=== PATIENT | male | born 1960 | race Caucasian/White ===

== ENCOUNTER 2018-02-23 18:29 | Inpatient (IN) | payer BC ==
[2018-02-23] MEDS: SODIUM CHLORIDE 0.9% 1,000 ML IV SCH (18:35)
--- NOTE | 2018-02-23 19:01 | ED ---
General Adult HPI - General Chief complaint: Chest Pain Stated complaint: elevated troponin Time Seen by Provider: 02/23/18 18:33 Source: patient, EMS, RN notes reviewed, old records reviewed Mode of arrival: EMS Limitations: no limitations - History of Present Illness Initial comments: 57-year-old male transferred as non-ST segment elevated [place]. Patient complained of some chest pressure and nausea. He states he felt fullness in his chest. Patient was found to have an elevated troponin and transferred for further evaluation. Patient has no known medical history, nondiabetic. Nonsmoker. He does have family history of CAD. Patient himself has no known history of coronary artery disease. He states he is feeling quite a bit better at the time my evaluation. No nausea vomiting. He has some mild chest fullness and tightness. No specific pain complaint. No abdominal pain. Patient was given aspirin and started on heparin prior to transfer. - Related Data Home Medications Medication Instructions Recorded Confirmed Acetaminophen [Tylenol Extra 500 mg PO Q6H PRN 02/23/18 02/23/18 Strength] Aspirin 325 mg PO BID PRN 02/23/18 02/23/18 Allergies Allergy/AdvReac Type Severity Reaction Status Date / Time No Known Allergies Allergy Verified 02/23/18 19:06 Review of Systems ROS Statement: Those systems with pertinent positive or pertinent negative responses have been documented in the HPI. ROS Other: All systems not noted in ROS Statement are negative. Past Medical History Past Medical History: Hyperlipidemia History of Any Multi-Drug Resistant Organisms: None Reported Past Surgical History: No Surgical Hx Reported Past Psychological History: No Psychological Hx Reported Smoking Status: Never smoker Past Alcohol Use History: Occasional Past Drug Use History: None Reported General Exam Limitations: no limitations General appearance: alert, in no apparent distress Head exam: Present: atraumatic, normocephalic Eye exam: Present: normal appearance, PERRL, EOMI ENT exam: Present: normal exam Neck exam: Present: normal inspection. Absent: tenderness, meningismus Respiratory exam: Present: normal lung sounds bilaterally. Absent: respiratory distress, wheezes Cardiovascular Exam: Present: regular rate, normal rhythm GI/Abdominal exam: Present: soft. Absent: distended, tenderness, guarding Extremities exam: Present: normal inspection, normal capillary refill. Absent: pedal edema, calf tenderness Neurological exam: Present: alert, oriented X3, CN II-XII intact. Absent: motor sensory deficit Psychiatric exam: Present: normal affect, normal mood Skin exam: Present: warm, dry, intact. Absent: cyanosis, diaphoretic Course Vital Signs 02/23/18 18:34 Temperature 98.9 F Pulse Rate 68 Respiratory 18 Rate Blood Pressure 140/100 O2 Sat by Pulse 97 Oximetry EKG Findings - EKG Comments: EKG Findings:: EKG: Normal sinus rhythm, rate of 63, TN interval 144, QRS duration 94, QTC [address] segment elevation or depression Medical Decision Making - Medical Decision Making 57-year-old male presenting with elevated troponin and chief complaint of chest discomfort and fullness. EKG is repeated upon arrival after transfer. No acute signs of ischemia. Laboratory studies are repeated including troponin which went from 0.98 to 3.1. Case discussed with Dr. Mcmullen, given the elevated troponin and ongoing symptoms patient will be taken to the [facility]. Patient merited Dr. Barbosa - Lab Data Result diagrams: 02/23/18 18:54 02/23/18 18:54 Lab Results 02/23/18 02/23/18 02/23/18 Range/Units 18:54 18:54 18:54 WBC 9.2 (3.8-10.6) k/uL RBC 4.86 (4.30-5.90) m/uL Hgb 15.4 (13.0-17.5) gm/dL Hct 43.8 (39.0-53.0) % MCV 90.2 (80.0-100.0) fL MCH 31.7 (25.0-35.0) pg MCHC 35.2 (31.0-37.0) g/dL RDW 13.6 (11.5-15.5) % Plt Count 221 (150-450) k/uL Neutrophils % 76 % Lymphocytes % 17 % Monocytes % 5 % Eosinophils % 1 % Basophils % 1 % Neutrophils # 6.9 (1.3-7.7) k/uL Lymphocytes # 1.5 (1.0-4.8) k/uL Monocytes # 0.5 (0-1.0) k/uL Eosinophils # 0.1 (0-0.7) k/uL Basophils # 0.0 (0-0.2) k/uL Sodium 139 (137-145) mmol/L Potassium 4.5 (3.5-5.1) mmol/L Chloride 105 (98-107) mmol/L Carbon Dioxide 22 (22-30) mmol/L Anion Gap 12 mmol/L BUN 21 H (9-20) mg/dL Creatinine 0.74 (0.66-1.25) mg/dL Est GFR (CKD-EPI)AfAm >90 (>60 ml/min/1.73 sqM) Est GFR (CKD-EPI)NonAf >90 (>60 ml/min/1.73 sqM) Glucose 102 H (74-99) mg/dL Calcium 9.3 (8.4-10.2) mg/dL Total Bilirubin 0.9 (0.2-1.3) mg/dL AST 90 H (17-59) U/L ALT 47 (21-72) U/L Alkaline Phosphatase 66 (38-126) U/L Troponin I 3.120 H* (0.000-0.034) ng/mL Total Protein 7.6 (6.3-8.2) g/dL Albumin 4.5 (3.5-5.0) g/dL Critical Care Time Critical Care Time: Yes Total Critical Care Time: 35 Disposition Clinical Impression: NSTEMI (non-ST elevated myocardial infarction) Disposition: ADMITTED IP TO THIS [facility] Condition: Serious Is patient prescribed a controlled substance at d/c from ED?: No Referrals: Ntahan Paul MD [Primary Care Provider] - 1-2 days Decision to Admit Reason: Admit from EC Decision Date: 02/23/18 Decision Time: 19:41
[2018-02-23 19:07] LABS: Basophils % (A) 1 %; Eosinophils # (A) 0.1 k/uL (0-0.7); Eosinophils % (A) 1 %; HCT 43.8 % (39.0-53.0); HGB 15.4 gm/dL (13.0-17.5); Lymphocytes # (A) 1.5 k/uL (1.0-4.8); Lymphocytes % (A) 17 %; MCH 31.7 pg (25.0-35.0); MCHC 35.2 g/dL (31.0-37.0); MCV 90.2 fL (80.0-100.0); Mean Platelet Volume 7.9; Monocytes # (A) 0.5 k/uL (0-1.0); Monocytes % (A) 5 %; Neutrophils # (A) 6.9 k/uL (1.3-7.7); Neutrophils % (A) 76 %; Platelet Count 221 k/uL (150-450); RBC 4.86 m/uL (4.30-5.90); RDW 13.6 % (11.5-15.5); WBC 9.2 k/uL (3.8-10.6)
[2018-02-23 19:16] LABS: ALT 47 U/L (21-72); AST 90 U/L (17-59); Albumin 4.5 g/dL (3.5-5.0); Alkaline Phosphatase 66 U/L (38-126); Anion Gap 12 mmol/L; Blood Urea Nitrogen 21 mg/dL (9-20); Calcium 9.3 mg/dL (8.4-10.2); Carbon Dioxide 22 mmol/L (22-30); Chloride 105 mmol/L (98-107); Glucose 102 mg/dL (74-99); Potassium 4.5 mmol/L (3.5-5.1); Sodium 139 mmol/L (137-145); Total Bilirubin 0.9 mg/dL (0.2-1.3); Total Protein 7.6 g/dL (6.3-8.2)
[2018-02-23] MEDS ORDERED: HEPARIN SODIUM,PORCINE 5,000 UNIT/ML 1 ML VIAL IV PRN (19:33)
[2018-02-23 19:36] LABS: Partial Thromboplastin Time 48.1 sec (22.0-30.0); Prothrombin Time 10.1 sec (9.0-12.0)
[2018-02-23] MEDS ORDERED: ATORVASTATIN 80 MG TAB PO STA (19:36)
[2018-02-23] MEDS ORDERED: NALOXONE 0.4 MG/ML 1 ML VIAL IV PRN (19:36)
[2018-02-23] MEDS ORDERED: HEPARIN SOD,PORK IN 0.45% NACL 25,000 UNIT in 0.45% NACL 1 500ML.BAG IV SCH (19:45)
[2018-02-23] MEDS ORDERED: LIDOCAINE 1% INJ 10MG/ML (20 ML MDV) ONE (20:14)
[2018-02-23] MEDS ORDERED: VANCOMYCIN IV PER PHARMACY 1 EACH MISC MISCELLANE PRN (20:21)
[2018-02-23] MEDS ORDERED: PANTOPRAZOLE 40 MG/10 ML VIAL IVP STA (20:23)
[2018-02-23] MEDS ORDERED: cefTRIAXone IN SWFI 1,000 MG/10 ML SYRINGE IVP STA (20:24)
[2018-02-23] MEDS ORDERED: VANCOMYCIN 1,750 MG in SODIUM CHLORIDE 0.9% 500 ML IVPB STA (20:26)
[2018-02-23] MEDS ORDERED: fentaNYL (PF) 50 MCG/ML 2 ML AMP ONE (20:30)
[2018-02-23] MEDS ORDERED: VERAPAMIL 2.5 MG/ML 2 ML AMP ONE (20:30)
--- NOTE | 2018-02-23 20:30 | XR ---
EXAMINATION TYPE: XR chest 1V portable DATE OF EXAM: 02/23/2018 COMPARISON: NONE HISTORY: Chest pain TECHNIQUE: Single frontal view of the chest is obtained. FINDINGS: Heart and mediastinum are normal. Lungs are clear. Diaphragm is normal. Bony thorax appear s normal. IMPRESSION: Normal chest
[2018-02-23] MEDS ORDERED: fentaNYL (PF) 50 MCG/ML 2 ML AMP IV ONE (20:33)
[2018-02-23] MEDS ORDERED: LIDOCAINE 2% SYG (PF) 100 MG/5 ML MISCELLANE ONE (20:35)
[2018-02-23] MEDS ORDERED: VERAPAMIL SYRINGE (5 MG/10 ML) INTRAARTER ONE (20:37)
[2018-02-23] MEDS ORDERED: IV FLUID CONTINUATION 1,000 ML IV ONE (20:38)
[2018-02-23] MEDS ORDERED: BIVALIRUDIN BOLUS 250 MG/50 ML IV ONE (20:45)
[2018-02-23] MEDS ORDERED: PRASUGREL 10 MG TAB ONE (20:46)
[2018-02-23] MEDS ORDERED: BIVALIRUDIN 250 MG in SODIUM CHLORIDE 0.9% 50 ML IV ONE ×2 (20:46→21:35)
[2018-02-23] MEDS ORDERED: PRASUGREL 10 MG TAB PO ONE (20:49)
[2018-02-23] MEDS ORDERED: IOPAMIDOL-370 125ML BTL INJ ONE ×2 (21:00)
[2018-02-23] MEDS ORDERED: NITROGLYCERIN 1000MCG/10ML SYRINGE INTRACORON ONE (21:45)
[2018-02-23] MEDS ORDERED: IOPAMIDOL-370 100ML BTL INJ ONE ×2 (21:46→22:12)
[2018-02-23] MEDS ORDERED: ATROPINE SULFATE 0.1 MG/ML 10ML SYRINGE IV PRN (22:31)
[2018-02-23] MEDS ORDERED: RX INFO: IV CONTRAST WAS GIVEN 1 EACH MISC MISCELLANE PRN (22:31)
[2018-02-23] MEDS ORDERED: ZOLPIDEM 5 MG TAB PO PRN (22:31)
[2018-02-23] MEDS ORDERED: MAG HYDROX/AL HYDROX/SIMETH 30 ML CUP PO PRN (22:31)
[2018-02-23] MEDS ORDERED: NITROGLYCERIN SL TABS 0.4 MG TAB SUBLINGUAL PRN (22:31)
[2018-02-23] MEDS ORDERED: SODIUM CHLORIDE 0.9% 1,000 ML IV SCH (22:45)
[2018-02-24] MEDS: METOPROLOL TARTRATE 25 MG TAB PO SCH ×3 (00:03→20:20)
[2018-02-24] MEDS: ATORVASTATIN 80 MG TAB PO SCH ×2 (00:03→20:20)
[2018-02-24] MEDS: SODIUM CHLORIDE 0.9% 1,000 ML IV SCH (00:04)
--- NOTE | 2018-02-24 06:09 | CONS ---
CONSULTATION Mr. Zabala is a 57-year-old male with no prior documented history of cardiac disease who woke up this morning with jaw, neck discomfort and teeth discomfort subsequently chest discomfort. His discomfort persisted and he went to the emergency room at [facility]. He is usually quite active physically, exercises regularly without any difficulty. This discomfort is new to him. He denies any prior cardiac history. Denies any similar symptoms. He has no prior history of PND, orthopnea, or peripheral edema. No dizziness, palpitation, or syncope. In the emergency room in [place], his troponin was 1.04. The patient coronary risk factors are negative for diabetes. He is nonsmoker. He had hypertension in the past but subsequently did not need to be treated. He has no history of smoking. His father had a myocardial infarction in his 70s. MEDICATIONS: His medication none. SOCIAL HISTORY: He drinks caffeine. Social alcohol intake. REVIEW OF SYSTEMS: RESPIRATORY SYSTEM: No recent wheezing. No cough. No history of obstructive lung disease. GI SYSTEM: No recent GI bleed. No peptic ulcer disease. SYSTEM: No dysuria or hematuria. NERVOUS SYSTEM: No history of stroke or seizure. PHYSICAL EXAMINATION: A 57-year-old male, alert, oriented, in no apparent distress. Blood pressure running in the 130/70 with a heart rate in the 70s. HEAD: Normocephalic. EYES: Sclerae anicteric. NECK: Good carotid upstroke. No bruit. No jugular venous distention. LUNGS: Clear to auscultation. HEART: Regular rate and rhythm. S1, S2. No S3. No S4. No murmur or rub. ABDOMEN: Soft, nontender. Positive bowel sounds. No organomegaly. EXTREMITIES: No edema. Intact distal pulses. LAB DATA: Lab data revealed troponin 1.04, potassium 3.8, BUN and creatinine of 20 and 0.9. EKG revealed sinus mechanism, normal axis and intervals. No acute ST-segment changes. IMPRESSION: Chest discomfort with jaw and teeth discomfort with elevation of troponin consistent with non ST-segment elevation myocardial infarction. The patient continues to have some chest discomfort at this time. RECOMMENDATION: In view of his persistent symptoms on presentation, I recommend proceeding with coronary angiography to assess his status and guide his treatment. The rationale behind the procedure as well as the risks and complications were discussed with the patient who is in full understanding and agreement. Thank you for this consult. We will follow with you. MMPAULYL / IJN: [id number] /
--- NOTE | 2018-02-24 06:24 | CC ---
CARDIAC CATHETERIZATION REPORT Mr. Zabala is a 57-year-old male with no prior history disease of coronary artery disease, who presented to the emergency room with symptoms of chest discomfort and jaw discomfort with troponin elevation consistent with myocardial infarction. In view of that, recommendation made regarding cardiac catheterization. The procedures, risks and complications were discussed with the patient who was in full understanding and agreement. PROCEDURE: Patient was brought to fence laborer after receiving fentanyl and Benadryl and achieving moderate conscious sedated state. Using Xylocaine anesthesia and Seldinger technique a 6-British sheath was introduced in the right radial artery. Selective right and left angiography performed using 5-British 3 and half bend right Margarette catheter and a 6- British 3 and half FR4 guiding catheter. Images of the coronary arteries with violeta axial views were obtained. Following that, angioplasty and stenting was performed. Following that a 6-British tight pigtail catheter was introduced in the left ventricle and pressures were calculated. Following that, catheter and sheaths were removed. Hemostasis was obtained with deployment of an TR band. There was no immediate complication. Patient is returned to his room in stable condition. FINDINGS: Left Main: This is a large-sized vessel trifurcating left circumflex, left anterior descending artery, left main coronary artery and a ramus intermedius. Left main coronary artery has no evidence of high-grade stenosis. Left Anterior Descending Artery: This is a large-sized vessel reaching toward the apex with a wraparound apex segment giving rise to a moderately sized diagonal branch. The left anterior descending artery has intimal disease and throughout its course of 20 to 30%. There was a 60 to 70% plaque at the takeoff of the diagonal branch. Ramus Intermedius: This vessel is large in caliber, reaching to the apical lateral wall, has intimal disease in the proximal segment of 20% to 30% without any evidence of high-grade stenosis. Left Circumflex: This vessel is totally occluded proximally with no antegrade flow. Right Coronary Artery: This is a dominant vessel moderate in caliber bifurcating distally PDA and posterolateral segment branches. The right coronary artery and its segment has a plaque of about 50-60%. The rest of the vessel has no high-grade stenosis. Left Ventriculogram: Left ventriculogram was not performed. Hemodynamics: There was no gradient across the aortic valve. The left ventricle end- diastolic pressure was 12 to 60 mmHg. CONCLUSION: 1. Acutely occluded the left circumflex proximally. 2. Mild to moderate disease in a diffuse pattern in the LAD and the right coronary artery. RECOMMENDATION: In view of finding anatomy I recommend proceeding with angioplasty and stenting of the left circumflex. The procedures, risks and complications were discussed with the patient who is in full understanding and agreement. JOSE / DELROY: [id number] /
--- NOTE | 2018-02-24 06:36 | PTCA ---
PERCUTANEOUSTRANS CORORONARY ANGIOGRAPHY Mr. Zabala is a 57-year-old male with no prior documented history of coronary artery disease who presented with evidence of non ST-segment elevation myocardial infarction, underwent cardiac catheterization and was found to have totally occluded proximal left circumflex. In view of that, recommendation was made regarding angioplasty and stenting. The procedure as well as the risks and the complications were discussed with the patient who is in full understanding and agreement. PROCEDURE: Using the 6-[place] FL 3.5 guiding catheter attempts to advance a 0.014 balanced medium weight J-wire through the total occlusion were unsuccessful because of poor backup. At that point, the guiding catheter was removed and a 6-[place] Citizen EBU 3.75 guiding catheter was introduced in the system and a 0.014 whisper J-wire with straight SuperCross were advanced. There was inability to advance the wire through the total occlusion because of the acute and angulation of the takeoff of the left circumflex. At that point, the straight SuperCross the catheter was removed and a 45 degree SuperCross catheter was advanced and with the help of that catheter, the whisper J-wire was positioned distally across the lesion. Following the removal of the SuperCross 1.5 x 8 mm Trek balloon was advanced and multiple inflations maximum of 10 atmospheres were done. Following that the balloon was removed and a 2.0 x 8 mm Trek balloon was advanced and multiple inflations were done in the proximal segment. Following that, the balloon was removed and a 2.25 x 12 mm Xience Alpine stent was deployed postdilated at 12 atmospheres after removing the balloon a 2.25 x 8 mm Xience Alpine stent was deployed distal to the first one and it was dilated at 12 atmospheres. Following that, the balloon was removed and another 2.25 x 8 mm Xience Alpine stent was deployed proximal to the first stent and post dilated at 12 atmospheres. After the last inflation, after appropriate wait, the balloon and the guidewire were withdrawn back in the guiding catheter. Images were obtained and repeated. Those images reveal stable successful stenting. At that point, the guiding catheter, the balloon and the guidewire were removed. Left ventricle end-diastolic pressure was measured using the pigtail catheter. Following that, catheter and sheaths were removed. Hemostasis was obtained with deployment of a TR band. There was no immediate complication. Patient was returned to his room in stable condition. Of note, the patient had improvement in his chest discomfort at the end of the procedure. He received Angiomax per protocol as well as oral loading dose of Effient. RESULTS: Successful stenting of proximal left circumflex with reduction of stenosis from 100% to 0%. RECOMMENDATION: Patient will be continued on aspirin, Effient, beta lionel, PUJA inhibitor, and statin. The importance of dual antiplatelet treatment was discussed with the patient and his family and they are in full understanding and agreement. Duration procedure is 108 minutes. MMODL / IJN: [id number] /
[2018-02-24 06:50] LABS: Anion Gap 11 mmol/L; Blood Urea Nitrogen 18 mg/dL (9-20); Carbon Dioxide 22 mmol/L (22-30); Chloride 106 mmol/L (98-107); Cholesterol 207 mg/dL (<200); Glucose 109 mg/dL (74-99); HDL Cholesterol 42 mg/dL (40-60); LDL Cholesterol,Calculated 120 mg/dL (0-99); Potassium 4.1 mmol/L (3.5-5.1); Sodium 139 mmol/L (137-145); Triglycerides 224 mg/dL (<150)
[2018-02-24] MEDS: ASPIRIN 81 MG PO SCH (07:59)
--- NOTE | 2018-02-24 09:23 | P.PN ---
Subjective Progress Note Date: 02/24/18 Principal diagnosis: NSTEMI This is a pleasant 57-year-old gentleman with no significant history of cardiac issues, is a nonsmoker, no diabetes and prior hypertension for which he has not recently required treatment for and family history includes father who had an GA in his 70s. He presented to [facility] with complaints of the jaw neck, bilateral teeth and chest discomfort that persisted for several hours. He is usually quite physically active, exercises regularly, right his bike frequently and has no difficulty with this. His troponin levels came in to be elevated and the patient was subsequently transferred here to [facility]. He underwent cardiac catheterization by Dr. Mcmullen yesterday which found acutely occluded left circumflex proximally and mild to moderate disease in a diffuse pattern in the LAD and the RCA. He subsequently underwent stenting of the proximal left circumflex. Upon examination this morning, patient is resting comfortably in bed. He denies further complaints of jaw neck or tooth discomfort. Continues to have very mild left chest discomfort, he does not really describe this as a pain, rated a 1 and a 0-10 scale. He has been up ambulating only to the bathroom but has not had difficulties with this. Denies any shortness of breath, lightheadedness, dizziness, palpitations, nausea or vomiting. Objective - Vital Signs Vital signs: Vital Signs Temp 98.6 F 02/24/18 07:53 Pulse 71 02/24/18 08:00 Resp 16 02/24/18 07:53 BP 118/75 02/24/18 07:53 Pulse Ox 94 L 02/24/18 09:05 Intake & Output 02/23/18 02/24/18 02/24/18 18:59 06:59 18:59 Intake Total 1521.05 10 Output Total 800 Balance 721.05 10 Weight 92.986 kg 94 kg Intake: IV 1521.05 10 Invasive Line 2 10 10 Sodium Chloride 0.9% 1, 1200 000 ml @ 100 mls/hr IV . Q10H JENNIFER Rx#:[id number] Output: Urine 800 Other: # Voids 1 - Exam PHYSICAL EXAMINATION: HEENT: Head is atraumatic, normocephalic. Pupils equal, round. Neck is supple. There is no elevated jugular venous pressure. HEART EXAMINATION: Heart sounds regular, S1 and S2 normal. No murmur or gallop heard. CHEST EXAMINATION: Lungs are clear to auscultation and precussion. No chest wall tenderness is noted on palpation or with deep breathing. ABDOMEN: Soft, nontender. Bowel sounds are heard. No organomegaly noted. EXTREMITIES: 2+ peripheral pulses with no evidence of peripheral edema and no calf tenderness noted. Right radial puncture site is soft without hematoma or ecchymosis. NEUROLOGIC patient is awake, alert and oriented x3. . - Labs CBC & Chem 7: 02/23/18 18:54 02/24/18 06:17 Labs: Abnormal Lab Results - Last 24 Hours (Table) 02/23/18 02/23/18 02/23/18 Range/Units 18:54 18:54 18:54 APTT 48.1 H (22.0-30.0) sec BUN 21 H (9-20) mg/dL Glucose 102 H (74-99) mg/dL AST 90 H (17-59) U/L Troponin I 3.120 H* (0.000-0.034) ng/mL Triglycerides (<150) mg/dL Cholesterol (<200) mg/dL LDL Cholesterol, Calc (0-99) mg/dL 02/24/18 02/24/18 02/24/18 Range/Units 01:05 06:17 06:17 APTT (22.0-30.0) sec BUN (9-20) mg/dL Glucose 109 H (74-99) mg/dL AST (17-59) U/L Troponin I 30.500 H* 27.400 H* (0.000-0.034) ng/mL Triglycerides 224 H (<150) mg/dL Cholesterol 207 H (<200) mg/dL LDL Cholesterol, Calc 120 H (0-99) mg/dL Assessment and Plan Assessment: #1 non-STEMI #2 status post stenting of the proximal left circumflex #3 mild to moderate CAD involving the LAD and RCA #4 hyperlipidemia #5 remote history of hypertension Plan: From cardiology perspective, continue aspirin, atorvastatin, metoprolol tartrate and Effient. Echocardiogram with Doppler was obtained, we will review these at results. Further recommendations to follow. The above dictated assessment and findings were discussed with signing physician. The impression and plan of care have been directed as dictated. Gill Antoine, Nurse Practitioner, acting as scribe for signing physician.
--- NOTE | 2018-02-24 09:47 | ECHOF ---
Referral Reason:nc MEASUREMENTS -------- HEIGHT: 170.2 cm WEIGHT: 93.9 kg BP: 105/65 RVIDd: 3.2 cm (< 3.3) IVSd: 1.2 cm (0.6 - 1.1) LVIDd: 3.6 cm (3.9 - 5.3) LVPWd: 1.2 cm (0.6 - 1.1) IVSs: 1.6 cm LVIDs: 2.4 cm LVPWs: 1.6 cm LA Diam: 3.5 cm (2.7 - 3.8) LAESV Index (A-L): 26.15 ml/m Ao Diam: 3.6 cm (2.0 - 3.7) AV Cusp: 2.3 cm (1.5 - 2.6) MV EXCURSION: 16.312 mm (> 18.000) MV EF SLOPE: 69 mm/s (70 - 150) EPSS: 0.5 cm MV E Aman: 0.85 m/s MV DecT: 185 ms MV A Aman: 0.91 m/s MV E/A Ratio: 0.94 FINDINGS -------- Sinus rhythm. This was a technically good study. The left ventricular size is normal. There is borderline concentric left ventricular hypertrophy. Overall left ventricular systolic function is normal with, an EF between 60 - 65 %. The right ventricle is normal in size. Normal LA size by volume 22+/-6 ml/m2. The right atrium is normal in size. The aortic valve is trileaflet and appears structurally normal. Mild mitral regurgitation is present. The tricuspid valve appears structurally normal. Trace/mild (physiologic) pulmonic regurgitation. The aortic root size is normal. IVC Not well visulized. There is no pericardial effusion. CONCLUSIONS -------- 1. Sinus rhythm. 2. This was a technically good study. 3. The left ventricular size is normal. 4. There is borderline concentric left ventricular hypertrophy. 5. Overall left ventricular systolic function is normal with, an EF between 60 - 65 %. 6. The right ventricle is normal in size. 7. Normal LA size by volume 22+/-6 ml/m2. 8. The right atrium is normal in size. 9. The aortic valve is trileaflet and appears structurally normal. 10. Mild mitral regurgitation is present. 11. The tricuspid valve appears structurally normal. 12. Trace/mild (physiologic) pulmonic regurgitation. 13. The aortic root size is normal. 14. IVC Not well visulized. 15. There is no pericardial effusion. SENIOR PLANNING ANALYST: Paula Pacheco RDCS
[2018-02-24 11:22] VITALS: BMI 32.4
--- NOTE | 2018-02-24 15:58 | P.HPIM ---
History of Present Illness 57-year-old the gentleman admitted for chest pain in the retrosternal area typical just pain found to have non-ST elevation microinfarction with highly elevated troponin of 26 underwent cardiac catheterization which showed completely occluded left proximal underwent stenting of that vessel and the patient denied any chest pain at this point of time patient is not a smoker does drink alcohol occasionally patient denied any fever chills patient's pain is is nonpleuritic not associated with food. Post cardiac catheterization echocardiac exam showed ejection fraction of 65% Review of Systems REVIEW OF SYSTEMS: CONSTITUTIONAL: No fever, no malaise, no fatigue. HEENT: No recent visual problems or hearing problems. Denied any sore throat. CARDIOVASCULAR: No orthopnea, PND, no palpitations, no syncope. PULMONARY: No shortness of breath, no cough, no hemoptysis. GASTROINTESTINAL: No diarrhea, no nausea, no vomiting, no abdominal pain. Normoactive bowel sounds. NEUROLOGICAL: No headaches, no weakness, no numbness. HEMATOLOGICAL: Denies any bleeding or petechiae. GENITOURINARY: Denies any burning micturition, frequency, or urgency. MUSCULOSKELETAL/RHEUMATOLOGICAL: Denies any joint pain, swelling, or any muscle pain. ENDOCRINE: Denies any polyuria or polydipsia. The rest of the 14-point review of systems is negative. Past Medical History Past Medical History: Hyperlipidemia History of Any Multi-Drug Resistant Organisms: None Reported Past Surgical History: No Surgical Hx Reported Past Anesthesia/Blood Transfusion Reactions: No Reported Reaction Past Psychological History: No Psychological Hx Reported Smoking Status: Never smoker Past Alcohol Use History: Occasional Past Drug Use History: None Reported Medications and Allergies Home Medications Medication Instructions Recorded Confirmed Type Acetaminophen [Tylenol Extra 500 mg PO Q6H PRN 02/23/18 02/23/18 History Strength] Aspirin 325 mg PO BID PRN 02/23/18 02/23/18 History Allergies Allergy/AdvReac Type Severity Reaction Status Date / Time No Known Allergies Allergy Verified 02/23/18 19:06 Physical Exam Vitals: Vital Signs Temp Pulse Pulse Resp BP BP Pulse Ox 02/24/18 11:42 97.8 F 67 18 105/72 97 02/24/18 09:05 94 L 02/24/18 08:00 71 02/24/18 07:53 98.6 F 71 16 118/75 94 L 02/24/18 04:00 97.2 F L 61 16 105/65 96 02/24/18 02:15 61 18 105/64 98 02/24/18 01:16 65 18 101/66 95 02/24/18 00:16 62 18 108/73 97 02/23/18 23:46 64 18 114/68 97 02/23/18 23:16 73 18 132/61 98 02/23/18 23:01 64 18 121/80 98 02/23/18 22:46 65 18 116/83 97 02/23/18 22:31 98.1 F 65 18 125/83 98 02/23/18 18:45 18 02/23/18 18:34 98.9 F 68 18 140/100 97 Intake and Output 02/24/18 02/24/18 02/24/18 06:59 14:59 22:59 Intake Total 1210 260 Balance 1210 260 Intake: IV 1210 20 Invasive Line 2 10 20 Sodium Chloride 0.9% 1, 1200 000 ml @ 100 mls/hr IV . Q10H [facility] Rx#:[id number] Oral 240 Other: Weight 94 kg 94 kg PHYSICAL EXAMINATION: GENERAL: The patient is alert and oriented x3, not in any acute distress. Well developed, well nourished. HEENT: Pupils are round and equally reacting to light. EOMI. No scleral icterus. No conjunctival pallor. Normocephalic, atraumatic. No pharyngeal erythema. No thyromegaly. CARDIOVASCULAR: S1 and S2 present. No murmurs, rubs, or gallops. PULMONARY: Chest is clear to auscultation, no wheezing or crackles. ABDOMEN: Soft, nontender, nondistended, normoactive bowel sounds. No palpable organomegaly. MUSCULOSKELETAL: No joint swelling or deformity. EXTREMITIES: No cyanosis, clubbing, or pedal edema. NEUROLOGICAL: Gross neurological examination did not reveal any focal deficits. SKIN: No rashes. Results CBC & Chem 7: 02/23/18 18:54 02/24/18 06:17 Labs: Abnormal Lab Results - Last 24 Hours (Table) 02/23/18 02/23/18 02/23/18 Range/Units 18:54 18:54 18:54 APTT 48.1 H (22.0-30.0) sec BUN 21 H (9-20) mg/dL Glucose 102 H (74-99) mg/dL AST 90 H (17-59) U/L Troponin I 3.120 H* (0.000-0.034) ng/mL Triglycerides (<150) mg/dL Cholesterol (<200) mg/dL LDL Cholesterol, Calc (0-99) mg/dL 02/24/18 02/24/18 02/24/18 Range/Units 01:05 06:17 06:17 APTT (22.0-30.0) sec BUN (9-20) mg/dL Glucose 109 H (74-99) mg/dL AST (17-59) U/L Troponin I 30.500 H* 27.400 H* (0.000-0.034) ng/mL Triglycerides 224 H (<150) mg/dL Cholesterol 207 H (<200) mg/dL LDL Cholesterol, Calc 120 H (0-99) mg/dL Thrombosis Risk Factor Assmnt - Choose All That Apply Any of the Below Risk Factors Present?: Yes Each Factor Represents 1 point: Acute NE, Age 41-60 years, Obesity (BMI >25) Thrombosis Risk Factor Assessment Total Risk Factor Score: 3 Thrombosis Risk Factor Assessment Level: Moderate Risk Assessment and Plan Plan: -Acute non-ST elevation microinfarction status post cardiac catheterization of circumflex patient is clinically doing well. Patient is on dual antiplatelet therapy statin -Hyperlipidemia -Hypertension
[2018-02-24] MEDS: PRASUGREL 10 MG TAB PO SCH (20:19)
--- NOTE | 2018-02-25 08:11 | P.PN ---
Subjective Progress Note Date: 02/25/18 Principal diagnosis: Acute coronary syndrome This is a pleasant 57-year-old gentleman who was transferred from [facility] after he was diagnosed with acute non-ST patient myocardial infarction after he presented with a chest discomfort. The patient underwent a heart catheterization and was found to have an occluded left circumflex where he underwent successful angioplasty and stenting of the left circumflex. On follow-up with him today, he still have very mild chest discomfort but it does not seems to be anginal because is not exertional and its only once he take a very deep breath. No shortness of breath. No dizziness or lightheadedness. The vitals are stable beside the heart rate has been in the upper limits. I would not increase the dose of metoprolol in view of the marginally low blood pressure. The echocardiogram revealed normal LV function without any evidence of foreign motion abnormalities. In terms off medication he continues to be on dual antiplatelet therapy along with statin. Objective - Vital Signs Vital signs: Vital Signs Temp 97.8 F 02/25/18 04:00 Pulse 98 02/25/18 04:00 Resp 17 02/25/18 04:00 BP 96/58 02/25/18 04:00 Pulse Ox 94 L 02/25/18 04:00 Intake & Output 02/24/18 02/25/18 02/25/18 18:59 06:59 18:59 Intake Total 1470 Balance 1470 Weight 94 kg 93.7 kg Intake: IV 30 Invasive Line 2 30 Oral 1440 Other: Voiding Method Toilet # Voids 3 1 # Bowel Movements 0 - Constitutional General appearance: Present: no acute distress - Respiratory Respiratory: bilateral: CTA - Cardiovascular Rhythm: regular Heart sounds: normal: S1, S2 - Labs CBC & Chem 7: 02/23/18 18:54 02/24/18 06:17 Assessment and Plan Assessment: Assessment #1 acute non-ST elevation myocardial infarction #2 status post PCI of the left circumflex #3 preserved left ventricular systolic function #4 hypertension #5 dyslipidemia Plan #1 continue the current medical regimen which included dual antiplatelet therapy along with high intensity statin #2 possible discharge within the next 24 hours.
[2018-02-25] MEDS: ASPIRIN 81 MG PO SCH (08:24)
[2018-02-25] MEDS: METOPROLOL TARTRATE 25 MG TAB PO SCH ×2 (08:24→20:49)
[2018-02-25] MEDS: PRASUGREL 10 MG TAB PO SCH (08:24)
--- NOTE | 2018-02-25 12:40 | P.PN ---
Subjective Patient was admitted secondary to non-ST elevation myocardial infarction underwent cardiac catheterization and stenting of circumflex. Patient is clinically doing well no overnight events Inserted review of systems a progress note. Objective - Vital Signs Vital signs: Vital Signs Temp 98.1 F 02/25/18 12:00 Pulse 68 02/25/18 12:00 Resp 14 02/25/18 12:00 BP 138/71 02/25/18 12:00 Pulse Ox 97 02/25/18 12:00 Intake & Output 02/24/18 02/25/18 02/25/18 18:59 06:59 18:59 Intake Total 1470 360 Balance 1470 360 Weight 94 kg 93.7 kg Intake: IV 30 Invasive Line 2 30 Oral 1440 360 Other: Voiding Method Toilet Toilet # Voids 3 1 # Bowel Movements 0 - Exam PHYSICAL EXAMINATION: GENERAL: The patient is alert and oriented x3, not in any acute distress. Well developed, well nourished. HEENT: Pupils are round and equally reacting to light. EOMI. No scleral icterus. No conjunctival pallor. Normocephalic, atraumatic. No pharyngeal erythema. No thyromegaly. CARDIOVASCULAR: S1 and S2 present. No murmurs, rubs, or gallops. PULMONARY: Chest is clear to auscultation, no wheezing or crackles. ABDOMEN: Soft, nontender, nondistended, normoactive bowel sounds. No palpable organomegaly. MUSCULOSKELETAL: No joint swelling or deformity. EXTREMITIES: No cyanosis, clubbing, or pedal edema. NEUROLOGICAL: Gross neurological examination did not reveal any focal deficits. SKIN: No rashes. - Labs CBC & Chem 7: 02/23/18 18:54 02/24/18 06:17 Assessment and Plan Plan: -Acute non-ST elevation myocardial status post cardiac catheterization of circumflex patient is clinically doing well. Patient is on dual antiplatelet therapy statin. Cardiology is recommending monitoring one more night possibility of discharge tomorrow -Hyperlipidemia -Hypertension
[2018-02-25] MEDS: SODIUM CHLORIDE 0.9% 1,000 ML IV SCH (20:30)
[2018-02-25] MEDS: ATORVASTATIN 80 MG TAB PO SCH (20:49)
[2018-02-26] MEDS: ASPIRIN 81 MG PO SCH (07:50)
[2018-02-26] MEDS: METOPROLOL TARTRATE 25 MG TAB PO SCH (07:50)
[2018-02-26] MEDS: PRASUGREL 10 MG TAB PO SCH (07:50)
[2018-02-26 09:36] VITALS: BP 128/62; PULSE 81; RESP 16; TEMP 98.4
--- NOTE | 2018-02-26 12:05 | P.PN ---
Subjective Progress Note Date: 02/26/18 This is a pleasant 57-year-old gentleman with no significant history of cardiac issues, is a nonsmoker, no diabetes and prior hypertension for which he has not recently required treatment for and family history includes father who had an SD in his 70s. He presented to [facility] with complaints of the jaw neck, bilateral teeth and chest discomfort that persisted for several hours. He is usually quite physically active, exercises regularly, right his bike frequently and has no difficulty with this. His troponin levels came in to be elevated and the patient was subsequently transferred here to [facility]. He underwent cardiac catheterization by Dr. Mcmullen which found acutely occluded left circumflex proximally and mild to moderate disease in a diffuse pattern in the LAD and the RCA. He subsequently underwent stenting of the proximal left circumflex. Upon examination this morning, patient is resting comfortably in bed. He denies further complaints of jaw neck or tooth discomfort. Denies any chest pain or difficulty in breathing. He has been up ambulating in the hallway without any difficulty. An echocardiogram with Doppler study was performed which revealed an ejection fraction of 60-65%. Objective - Vital Signs Vital signs: Vital Signs Temp 98.4 F 02/26/18 08:00 Pulse 81 02/26/18 08:00 Resp 16 02/26/18 08:00 BP 128/62 02/26/18 08:00 Pulse Ox 96 02/26/18 08:00 Intake & Output 02/25/18 02/26/18 02/26/18 18:59 06:59 18:59 Intake Total 1080 240 Balance 1080 240 Weight 93.8 kg Intake: Oral 1080 240 Other: Voiding Method Toilet Toilet Toilet # Voids 3 1 - Exam PHYSICAL EXAMINATION: GENERAL: 57-year-old gentleman in no acute distress at the time of my examination HEENT: Head is atraumatic, normocephalic. Pupils equal, round. Sclera anicteric. Conjunctiva are clear. Mucous membranes of the mouth are moist. Neck is supple. There is no elevated jugular venous pressure.] bruit is heard. HEART EXAMINATION: Heart S1, S2 normal. No murmur or gallop heard. CHEST EXAMINATION: Lungs are clear to auscultation and precussion. No chest wall tenderness is noted on palpation or with deep breathing. ABDOMEN: Soft, nontender. Bowel sounds are heard. No organomegaly noted. EXTREMITIES: 2+ peripheral pulses with no evidence of peripheral edema and no calf tenderness noted. NEUROLOGIC patient is awake, alert and oriented ?-3. . - Labs CBC & Chem 7: 02/23/18 18:54 02/24/18 06:17 Assessment and Plan Plan: Assessment: #1 non-STEMI #2 status post stenting of the proximal left circumflex #3 mild to moderate CAD involving the LAD and RCA #4 hyperlipidemia #5 remote history of hypertension Plan Cardiology's perspective, patient may be able to be discharged home today. We will continue aspirin 81 mg daily, Lipitor 80 mg daily, metoprolol 25 mg one tablet by mouth twice a day, Effient 10 mg daily, sublingual nitroglycerin as needed for chest pain. A follow-up appointment will be made with the patient to see Dr. Mcmullen in the office in one week. DNP note has been reviewed, I agree with a documented findings and plan of care. Patient was seen and examined.
--- NOTE | 2018-02-26 17:08 | P.DS ---
Providers Date of admission: 02/23/18 19:37 Expected date of discharge: 02/26/18 Attending physician: Umer Leong Consults: 02/23/18 19:37 Consult Physician Urgent Consulting Provider: Mady Mcmullen Consult Reason/Comments: NSTEMI Do you want consulting provider notified?: Yes 02/23/18 22:31 Consult Physician Routine Consulting Provider: [facility] Consult Reason/Comments: Post Interventional patient Do you want consulting provider notified?: Already Contacted Primary care physician: Nathan Paul MD Hospital Course: Final Diagnoses: -Acute non-ST elevation myocardial status post cardiac catheterization of circumflex patient is clinically doing well. Patient is on dual antiplatelet therapy statin. -Hyperlipidemia -Hypertension Hospital course:Patient was admitted secondary to non-ST elevation myocardial infarction. Evaluated by cardiology, underwent cardiac catheterization and stenting of circumflex. Echo reporting EF 60-65%. Tolerated procedure well. Cleared by cardiology for discharge. Patient is being discharged home in a stable condition with guarded prognosis. EXAMINATION: GENERAL: The patient is alert and oriented x3, not in any acute distress. CARDIOVASCULAR: S1 and S2 present. No murmurs, rubs, or gallops. PULMONARY: Chest is clear to auscultation, no wheezing or crackles. ABDOMEN: Soft, nontender, nondistended, normoactive bowel sounds. No palpable organomegaly. NEUROLOGICAL: Gross neurological examination did not reveal any focal deficits. The impression and plan of care has been dictated as directed. : I performed a history and examination of this patient, discussed the same with the dictator. I agree with the dictator's note ,documented as a scribe. Any additional findings or plans will be noted. Time taken: 35 minutes Patient Condition at Discharge: Stable Plan - Discharge Summary Discharge Rx Participant: Yes New Discharge Prescriptions: New Aspirin 81 mg PO DAILY #30 chew Atorvastatin [Lipitor] 80 mg PO HS #30 tab Metoprolol Tartrate [Lopressor] 25 mg PO BID #60 tab Nitroglycerin Sl Tabs [Nitrostat] 0.4 mg SUBLINGUAL Q5M PRN #25 tab PRN Reason: Chest Pain Prasugrel [Effient] 10 mg PO DAILY #30 tab Discontinued Aspirin 325 mg PO BID PRN PRN Reason: Pain Acetaminophen [Tylenol Extra Strength] 500 mg PO Q6H PRN PRN Reason: Pain Discharge Medication List Aspirin 81 mg PO DAILY #30 chew 02/26/18 [Rx] Atorvastatin [Lipitor] 80 mg PO HS #30 tab 02/26/18 [Rx] Metoprolol Tartrate [Lopressor] 25 mg PO BID #60 tab 02/26/18 [Rx] Nitroglycerin Sl Tabs [Nitrostat] 0.4 mg SUBLINGUAL Q5M PRN #25 tab 02/26/18 [Rx ] Prasugrel [Effient] 10 mg PO DAILY #30 tab 02/26/18 [Rx] Follow up Appointment(s)/Referral(s): Mady Mcmullen MD [STAFF PHYSICIAN] - 03/02/18 2:30 pm Nathan Paul MD [Primary Care Provider] - 03/02/18 8:30 am Ambulatory/Diagnostic Orders: Comprehensive Metabolic Panel [LAB.AMB] Time Frame: 3 Days, Location: None Selected Patient Instructions/Handouts: Heart Healthy Diet (DC), Cholesterol and Your Health (GEN), Coronary Intravascular Stent Placement (DC), After Radial Heart Catheterization (GEN) Activity/Diet/Wound Care/Special Instructions: Effient copay $20 Discharge Disposition: HOME SELF-CARE
== END 2018-02-26 14:59 | disposition home or self-care (01) | DRG 247 ==
LOC: EC 18:29 → 6SEL 19:37
PROVIDERS: ADMIT Hospitalist; ATTEND Hospitalist
PROC: B211YZZ Fluoroscopy of Multiple Coronary Arteries using Other Contrast (ICD-10-PCS; 2018-02-23)
PROC: 027035Z Dilation of Coronary Artery, One Artery with Two Drug-eluting Intraluminal Devices, Percutaneous Approach (ICD-10-PCS; principal; 2018-02-23 20:02)
PROC: 4A023N7 Measurement of Cardiac Sampling and Pressure, Left Heart, Percutaneous Approach (ICD-10-PCS; 2018-02-23 20:02)
DX: I21.4 Non-ST elevation (NSTEMI) myocardial infarction (principal); E78.5 Hyperlipidemia, unspecified; I25.119 Atherosclerotic heart disease of native coronary artery with unspecified angina pectoris; I10 Essential (primary) hypertension; Z79.82 Long term (current) use of aspirin; Z82.49 Family history of ischemic heart disease and other diseases of the circulatory system
CPT/HCPCS: 36415; 71045; 80048; 80053; 80061; 84484; 85025; 85610; 85730; 93005; 93306; 93458; 94760; 96365; 96366; 96368; 96375; 99291